=== PATIENT | female | born 2000 | race Caucasian/White ===

== ENCOUNTER 2021-08-17 10:05 | Emergency (ER) | payer MEDICAID, OTHER ==
[~2021-08-17] VITALS: Ht 149.9 cm; Wt 47.7 kg
[2021-08-17 10:12] VITALS: BP 131/111
[2021-08-17] MEDS ORDERED: KETOROLAC 60 MG/2 ML VIAL IM ONE (10:35)
[2021-08-17] MEDS ORDERED: ONDANSETRON 4 MG ODT PO ONE (10:35)
[2021-08-17] MEDS ORDERED: IBUP-2213 PO (10:42)
[2021-08-17] MEDS ORDERED: CIPR500T4 PO (10:42)
[2021-08-17] MEDS ORDERED: LOPE-289 PO (10:42)
[2021-08-17] MEDS ORDERED: ACET-8386 PO (10:42)
[2021-08-17] MEDS ORDERED: ONDA8TAB87 PO (10:42)
[2021-08-17 11:23] VITALS: BP 131/111
== END 2021-08-17 11:23 | disposition home or self-care (01) ==
LOC: MED 10:05
DX: R10.13 Epigastric pain (principal); Z20.822 Contact with and (suspected) exposure to COVID-19; R11.2 Nausea with vomiting, unspecified; R19.7 Diarrhea, unspecified; R50.9 Fever, unspecified
CPT/HCPCS: 36415; 96372; 99283; C9803; J1885; Q0162